=== PATIENT | female | born 1980 | race Caucasian/White ===

== ENCOUNTER 2019-10-12 11:53 | Emergency (ER) | payer OTHER ==
[~2019-10-12] VITALS: Ht 162.6 cm; Wt 102.1 kg
[2019-10-12 11:53] VITALS: BP 140/94
--- NOTE | 2019-10-12 11:53 | NUR ---
Patient BIBA BLS, transferred to bed 10. RN evaluating patient at bedside.
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
--- NOTE | 2019-10-12 12:12 | NUR ---
FRANSICO ROGERS AT BEDSIDE
[2019-10-12] MEDS ORDERED: KETOROLAC 60 MG/2 ML VIAL IM ONE (12:20)
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
--- NOTE | 2019-10-12 13:07 | NUR ---
X-Ray at bedside.
--- NOTE | 2019-10-12 15:00 | NUR ---
PLACED SPLINT TO R KNEE AND PROVIDED TEACHING ON CRUTCH WALKING
--- NOTE | 2019-10-12 15:10 | NUR ---
Patient discharged with v/s stable. Written and verbal after care instructions given and explained. Patient alert, oriented and verbalized understanding of instructions. Ambulatory with steady gait. All questions addressed prior to discharge. ID band removed. Patient advised to follow up with PMD. Rx of FLEXERIL & IBUPROFEN given. Patient educated on indication of medication including possible reaction and side effects. Opportunity to ask questions provided and answered.
[2019-10-12 15:11] VITALS: BP 134/90
== END 2019-10-12 15:10 | disposition home or self-care (01) ==
LOC: MED 11:53
DX: S80.01XA Contusion of right knee, initial encounter (principal); V49.88XA Car occupant (driver) (passenger) injured in other specified transport accidents, initial encounter; Y93.89 Activity, other specified; Y92.89 Other specified places as the place of occurrence of the external cause; Y99.8 Other external cause status
CPT/HCPCS: 29505; 73562; 81025; 96372; 99283; J1885; Q0092